=== PATIENT | male | born 1995 | race Caucasian/White ===

== ENCOUNTER 2020-02-23 21:43 | Emergency (ER) | payer SELFPAY ==
[2020-02-23 21:49] VITALS: BP 156/88; PULSE 76; RESP 18; TEMP 36.8; O2SAT 98; BMI 22.4
--- NOTE | 2020-02-23 21:57 | ED_ITS ---
HPI - Eye Problem General: Chief complaint: Eye Problems Stated complaint: issues with right eye Time Seen by Provider: 02/23/20 21:54 History of Present Illness: HPI Narrative: Patient is a 24-year-old male comes to the ED with foreign body in the eye. 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 Patient rinsed out his eye multiple times with eye wash. He was able to visualize foreign body in the right eye and says after each rinsing ED foreign body or romeo on eye seemed to get smaller and smaller. Patient says he does not have any pain currently. He says when he blinks he can feel a scratch on his eye. Denies any vision changes. Associated symptoms: Denies fever(s), headache(s), nausea, neck pain or vomiting Review of Systems Const: Denies: fever(s), chills or fatigue Eyes: Reports: other (foreign body in eye); Denies: change in vision or eye discomfort ENMT: Denies: throat pain, odynophagia, nasal discharge or nasal congestion Card: Denies: chest pain, palpitations, edema, swelling of feet/ankles, dyspnea on exertion or orthopnea Resp: Denies: dyspnea, productive cough or non-productive cough GI: Denies: abdominal pain, nausea, vomiting, diarrhea, constipation or hematochezia : Denies: flank pain, difficulty urinating, dysuria or hematuria Musc: Denies: neck pain, back pain or extremity swelling Skin/Breast: Denies: rash or new lesions Neuro: Denies: headache(s), numbness in extremities or weakness in extremities Physical Exam Const: COMMON NORMALS: no acute distress, patient oriented x3, healthy appearing and alert GENERAL APPEARANCE: cooperative and comfortable HENMT: COMMON NORMALS: normocephalic HEAD & SCALP: normocephalic MOUTH: Normal oral and palatal mucosa present THROAT: posterior oropharynx normal and uvula midline Eye: COMMON NORMALS: Equal, round and reactive pupils present and EOMs intact bilaterally PERIORBITAL: periorbital findings normal EYELID: eyelids normal CONJUNCTIVA: Yes conjunctival abnormal positive right conjunctival injection localized (Lateral) PUPIL: Yes Equal, round and reactive pupils present OTHER: Exam showed small orange/brown romeo on cornea Patient has rust ring present on the right cornea. Fluorescein dye placed in eye and lamp used to visualize findings--Small corneal ulcer seen in right eye. Neck/C-Spine: COMMON NORMALS: supple GENERAL: Yes normal visual inspection Resp: COMMON NORMALS: normal respiratory effort, No retractions, No use of accessory muscles and clear to auscultation bilaterally AUSCULTATION: clear to auscultation bilaterally Cardio: COMMON NORMALS: regular rate, regular rhythm, S1 normal heart sound present, S2 normal heart sound present, No gallops present (Cardio), No clicks present (Cardio), No murmurs present (Cardio) and Peripheral pulses 2+ throughout RATE: regular rate RHYTHM: regular rhythm HEART SOUNDS: S1 normal heart sound present and S2 normal heart sound present PERIPHERAL PULSES: Peripheral pulses 2+ throughout GI: COMMON NORMALS: Normal to inspection, nondistended, normoactive bowel sounds present, Soft to palpation, non-tender and no masses PALPATION: Yes Soft to palpation : COMMON NORMALS: Yes no CVA tenderness BLADDER/KIDNEY EXAM: Yes no CVA tenderness Back/Pelvis: COMMON NORMALS: no CVA tenderness Extremity: COMMON NORMALS: normal to inspection Neuro: COMMON NORMALS: patient oriented x3 and moves all extremities SENSORIUM/ORIENTATION: Yes alert Course Vital Signs: Vital signs: Vital Signs Temperature 98.3 F 02/23/20 21:49 Pulse Rate 76 02/23/20 21:49 Respiratory Rate 18 02/23/20 23:03 Blood Pressure 156/88 02/23/20 21:49 Pulse Oximetry 98 02/23/20 23:03 MDM - Eye Problem MDM Narrative: Medical decision making narrative: Patient is a 24-year-old m shweta comes to the ED with possible foreign body in. 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 He thinks it was a small piece of metal. Patient says he rinsed his eye out multiple times and he was able to visualize something in his right eye and it continued to get smaller and smaller after each rinse. Patient says he has no vision changes and very minimal pain on right eye. Exam showed small orange/brown romeo on cornea. Fluorescein exam with lamp showed small rust ring on right eye. Patient was given some tetracaine eyedrops to help with discomfort. Patient was diagnosed with corneal rust ring right eye and sent home with prescription for erythromycin eye ointment. I sent patient home with contact information for [facility] and told him to contact them Tuesday to schedule appointment to be reevaluated. Return to ED precautions given. Patient understood and agreed with plan. Discharge Plan Discharge Patient Disposition: Home Clinical Impression: Corneal rust ring of right eye Condition: Stable Prescriptions: New erythromycin 5 mg/gram (0.5 %) ointment 1 applic ophthalmic (eye) QID Qty: 3.5 RF: 0 Discharge Orders: Discharge Order (Routine); Ordered 02/23/20 Ordered By: Wolfgang Juárez Discharge Diet: Regular Discharge Activity: Limit activity as instructed Patient Instructions: Foreign Body - Eye Activity Restrictions/Additional Instructions: Follow-up with medical provider as directed. Call [facility] on Tuesday phone number is [phone]. Address is [facility] [address]. take medications as prescribed. Return to the ER or your medical provider if condition worsens. Please read and understand discharge instr uctions. If any questions, please ask. Discharge Date/Time: 02/23/20 23:04 Coding Level of Care Code ED [employer] for Bridgett Mendoza Exam Comprehensive
[2020-02-23] MEDS: tetanus-diphtheria tox (adult) 0.5 mL SDV IM (23:00)
[2020-02-23] MEDS: eye irrigation 30 mL Btl EYE-RIGHT (23:02)
[2020-02-23] MEDS: erythromycin Op Oint 1 gm 1 APPLIC EYE-RIGHT (23:02)
[2020-02-23] MEDS: tetracaine 0.5% Op Soln 4 mL Btl 1 DROP EYE-RIGHT (23:02)
[2020-02-23] MEDS: fluorescein 1 mg Strip EYE-RIGHT (23:02)
[2020-02-23 23:03] VITALS: RESP 18; O2SAT 98
== END 2020-02-23 23:04 | disposition home or self-care (01) ==
PROVIDERS: Emergency Provider Physician Assistant
DX: T15.01XA Foreign body in cornea, right eye, initial encounter (principal); X58.XXXA Exposure to other specified factors, initial encounter; Z23 Encounter for immunization
CPT/HCPCS: 12345; 90471; 90714; 99281; 99283